=== PATIENT | female | born 1995 ===

== ENCOUNTER 2017-01-02 11:41 | Emergency (ER) | payer MEDICAID ==
[2017-01-02] MEDS ORDERED: Sodium Chloride 0.9% 1,000 ML IV ONE (12:17)
--- NOTE | 2017-01-02 12:21 | C.PDOC ---
History Of Present Illness 21 year old female presents to the ED with complaints of nausea, fatigue, and generalized abdominal cramping and pain for the past week. Patient notes she went to her supervisor [employer] for a check up 3 weeks ago and her glucose levels were found to be high, and iron levels were low. She also states she has increased loose bowel movements. LNMP began December 23. No other complaints at this time. Time Seen by Provider: 01/02/17 12:10 Chief Complaint (Nursing): GI Problem History Per: Patient History/Exam Limitations: no limitations Onset/Duration Of Symptoms: Days (7) Current Symptoms Are (Timing): Still Present Location Of Pain/Discomfort: Diffuse Quality Of Discomfort: Cramping, "Pain" Associated Symptoms: Nausea, Vomiting, Loss Of Appetite. denies: Fever, Chills , Diarrhea, Back Pain Abnormal Vaginal Bleeding: No Past Medical History Reviewed: Historical Data, Nursing Documentation, Vital Signs Vital Signs: Last Vital Signs Temp Pulse 70 01/02/17 13:24 Resp 17 01/02/17 13:24 BP 113/71 01/02/17 13:24 Pulse Ox 100 01/02/17 13:24 - Medical History PMH: No Chronic Diseases Surgical History: No Surg Hx Family History: States: Unknown Family Hx - Social History Hx Tobacco Use: Yes (2-3 cigarettes daily) Hx Alcohol Use: Yes Hx Substance Use: No - Immunization History Hx Tetanus Toxoid Vaccination: No Hx Influenza Vaccination: No Hx Pneumococcal Vaccination: No Review Of Systems Constitutional: Positive for: Other (Fatigue). Negative for: Fever, Chills, Sweats ENT: Negative for: Nose Discharge Respiratory: Negative for: Cough Gastrointestinal: Positive for: Nausea, Vomiting, Abdominal Pain, Diarrhea Genitourinary: Negative for: Dysuria, Vaginal Discharge, Vaginal Bleeding Musculoskeletal: Negative for: Back Pain Neurological: Negative for: Headache, Dizziness Physical Exam - Physical Exam Appears: Non-toxic, No Acute Distress Skin: Normal Color, Warm, Dry Head: Atraumatic, Normacephalic Eye(s): bilateral: Normal Inspection, EOMI Nose: Normal Oral Mucosa: Moist Lips: Normal Appearing Throat: Normal, No Erythema, No Exudate Neck: Normal ROM, Supple Chest: Symmetrical, No Deformity Cardiovascular: Rhythm Regular Respiratory: No Decreased Breath Sounds, No Accessory Muscle Use, No Rales, No Rhonchi, No Stridor, No Wheezing Gastrointestinal/Abdominal: Bowel Sounds, Soft, Tenderness (generalized abdominal tenderness), No Distention, No Guarding, No Rebound Back: Normal Inspection, No CVA Tenderness Extremity: Normal ROM, No Tenderness Neurological/Psych: Oriented x3, Normal Speech Gait: Steady ED Course And Treatment - Laboratory Results Result Diagrams: 01/02/17 12:24 01/02/17 12:24 Lab Interpretation: No Acute Changes Medical Decision Making Medical Decision Makin y.o female with vague complaints of nausea, abdominal pain, diarrhea, and fatigue. Exam was unremarkable. Labs ordered and reviewed showing no anemia, leukocytosis or other abnormality. Upon reevaluation patient resting comfortably afebrile and in no distress. Patient feels well and is asking for work excuse for 2 days. Patient stable for discharge. Disposition Counseled Patient/Family Regarding: Diagnosis, Need For Followup, Rx Given - Disposition Referrals: [facility] [Outside] [facility] [Outside] Disposition: HOME/ ROUTINE Disposition Time: 13:09 Condition: STABLE Additional Instructions: Your labs are normal Please follow up with primary doctor or clinic for further evaluation Prescriptions: Ondansetron ODT [Zofran ODT] 1 odt PO BID PRN #6 odt PRN Reason: Nausea/Vomiting Instructions: Acute Nausea and Vomiting (ED) Forms: Work Excuse - POA Present On Arrival: None - Clinical Impression Clinical Impression: Nausea - Scribe Statement The provider has reviewed the documentation as recorded by the Scribalbaro Chamorro All medical record entries made by the Joseibalbaro were at my direction and personally dictated by me. I have reviewed the chart and agree that the record accurately reflects my personal performance of the history, physical exam, medical decision making, and the department course for this patient. I have also personally directed, reviewed, and agree with the discharge instructions and disposition.
[2017-01-02] MEDS ORDERED: Sodium Chloride 0.9% 1,000 ML ONE (12:26)
[2017-01-02 12:29] LABS: BASO % 0.6 % (0.0-2.0); HEMATOCRIT 40.7 % (34.0-47.0); LYMPH # 1.9 K/uL (1.0-4.3); LYMPH % 38.2 % (20.0-40.0); MEAN CELL VOLUME 93.1 fL (81.0-99.0); MEAN CORPUSCULAR HEMOGLOBIN 30.3 pg (27.0-31.0); MEAN CORPUSCULAR HGB CONC 32.5 g/dL (33.0-37.0); MEAN PLATELET VOLUME 9.1 fL (7.2-11.7); MONO # 0.4 K/uL (0.0-0.8); MONO % 8.6 % (0.0-10.0); NRBC % 0.1 % (0.0-2.0); RED CELL DISTRIBUTION WIDTH 12.5 % (11.5-14.5); WHITE BLOOD COUNT 4.9 K/uL (4.8-10.8)
[2017-01-02 12:37] LABS: RBC URINE 4 /hpf (0-3); URINE BILIRUBIN NEGATIVE (NEGATIVE); URINE BLOOD NEGATIVE (NEGATIVE); URINE COLOR Yellow (YELLOW); URINE GLUCOSE (UA) NORMAL (Normal); URINE KETONE NEGATIVE (NEGATIVE); URINE LEUKOCYTE ESTERASE NEG Leu/uL (Negative); URINE PROTEIN NEGATIVE (NEGATIVE); URINE UROBILINOGEN NORMAL mg/dL (0.2-1.0); WBC URINE 1 /hpf (0-5)
[2017-01-02 12:42] LABS: CHLORIDE 101 mmol/L (98-107); SODIUM 138 mmol/L (132-148)
[2017-01-02 12:43] LABS: POTASSIUM 3.5 mmol/L (3.6-5.2)
[2017-01-02 12:46] LABS: ALB/GLOB RATIO 1.4 (1.0-2.1); ALKALINE PHOSPHATASE 59 U/L (38-126); ALT/SGPT 19 U/L (9-52); AST/SGOT 22 U/L (14-36); BILIRUBIN,TOTAL 0.7 mg/dL (0.2-1.3); BLOOD UREA NITROGEN 7 mg/dL (7-17); CALCIUM 8.7 mg/dl (8.6-10.4); CARBON DIOXIDE 24 mmol/L (22-30); GFR AFRICAN-AMERICAN > 60; GLUCOSE,RANDOM 92 mg/dL (65-105); TOTAL PROTEIN 7.3 g/dL (6.3-8.3)
[2017-01-02 13:26] VITALS: BP 113/71; PULSE 70; RESP 17; O2SAT 100
== END 2017-01-02 13:45 | disposition home or self-care (01) ==
LOC: C.ER 11:41
DX: R11.0 Nausea (principal)
CPT/HCPCS: 80053; 81001; 83690; 84703; 85025; 96361; 96374; 99285; J2405; J7040

== ENCOUNTER 2017-08-30 14:25 | Emergency (ER) | payer BC, MEDICAID ==
[2017-08-30 14:46] VITALS: TEMP 98
--- NOTE | 2017-08-30 16:09 | RAD ---
PROCEDURE: Right Ankle Radiographs. HISTORY: Fall, pain COMPARISON: None FINDINGS: BONES: Bone alignment and mineralization are normal. There is no acute displaced fracture or bone destruction. JOINTS: Normal. No osteoarthritis. Ankle mortise maintained. Talar dome intact SOFT TISSUES: There is mild periarticular soft tissue swelling. OTHER FINDINGS: None. IMPRESSION: No acute fracture or dislocation. Mild periarticular soft tissue swelling.
[2017-08-30 16:30] VITALS: BP 105/68; PULSE 78; RESP 18; O2SAT 98
--- NOTE | 2017-08-30 16:50 | C.PDOC ---
History Of Present Illness 22 year old female presents to the ED for evaluation of right ankle pain which began 2 days ago. Patient states she was walking her dog when her right ankle turned. Patient denies falls, head injury, LOC, extremity numbness/weakness and is able to ambulate. Chief Complaint (Nursing): Lower Extremity Problem/Injury History Per: Patient History/Exam Limitations: no limitations Onset/Duration Of Symptoms: Days (2) Current Symptoms Are (Timing): Still Present Additional History Per: Patient Past Medical History Reviewed: Historical Data, Nursing Documentation, Vital Signs Vital Signs: Last Vital Signs Temp 98.0 F 08/30/17 14:44 Pulse 78 08/30/17 16:29 Resp 18 08/30/17 16:29 BP 105/68 08/30/17 16:29 Pulse Ox 98 08/31/17 09:55 - Medical History PMH: No Chronic Diseases Surgical History: No Surg Hx Family History: States: Unknown Family Hx - Social History Hx Tobacco Use: Yes (2-3 cigarettes daily) Hx Alcohol Use: Yes Hx Substance Use: Yes - Immunization History Hx Tetanus Toxoid Vaccination: No Hx Influenza Vaccination: No Hx Pneumococcal Vaccination: No Physical Exam - Physical Exam Appears: Non-toxic, No Acute Distress Skin: Normal Color, Warm, Dry, No Ecchymosis Extremity: Normal ROM, Capillary Refill (less than 2 seconds ), Swelling (mild, to lateral aspect of right ankle ) Neurological/Psych: Oriented x3, Normal Speech, Normal Cognition Gait: Steady ED Course And Treatment O2 Sat by Pulse Oximetry: 98 (on RA) Pulse Ox Interpretation: Normal Medical Decision Making Medical Decision Making: Right ankle XR ordered and reviewed. Tylenol PO administered. Disposition - [facility] - Disposition: HOME/ ROUTINE Disposition Time: 16:00 Condition: GOOD Additional Instructions: Thank you for letting us take care of you today. The emergency medical care you received today was directed at your acute symptoms. If you were prescribed any medication, please fill it and take as directed. It may take several days for your symptoms to resolve. Return to the Emergency Department if your symptoms worsen, do not improve, or if you have any other problems. Please contact your doctor or call one of the physicians/clinics you have been referred to that are listed on the Patient Visit Information form that is included in your discharge packet. Bring any paperwork you were given at discharge with you along with any medications you are taking to your follow up visit. Our treatment cannot replace ongoing medical care by a primary care provider (PCP) outside of the emergency department. Thank you for allowing the [facility] team to be part of your care today. Follow up with your doctor in 3-4 days for re-evaluation and further management. Prescriptions: Ibuprofen [Motrin] 600 mg PO Q6 PRN #20 tab PRN Reason: Pain, Moderate (4-7) Instructions: Ankle Sprain (ED), Crutch Instructions (ED), RICE Therapy (ED) Forms: Work Excuse - Clinical Impression Clinical Impression: Ankle sprain - Scribe Statement The provider has reviewed the documentation as recorded by the Scribe (Edie Chaparro) Provider Attestation: All medical record entries made by the Scribe were at my direction and personally dictated by me. I have reviewed the chart and agree that the record accurately reflects my personal performance of the history, physical exam, medical decision making, and the department course for this patient. I have also personally directed, reviewed, and agree with the discharge instructions and disposition.
== END 2017-08-30 16:54 | disposition home or self-care (01) ==
LOC: C.ER 14:25
DX: S93.401A Sprain of unspecified ligament of right ankle, initial encounter (principal); X50.0XXA Overexertion from strenuous movement or load, initial encounter; Y93.K1 Activity, walking an animal; Y92.89 Other specified places as the place of occurrence of the external cause

== ENCOUNTER 2017-09-03 10:32 | Emergency (ER) | payer BC, MEDICAID ==
[2017-09-03 10:36] VITALS: BP 109/69; PULSE 86; RESP 20; TEMP 98; O2SAT 99
--- NOTE | 2017-09-03 11:27 | C.PDOC ---
History Of Present Illness 22 y/o female comes in for right ankle evaluation. She reports pain and swelling over the right lateral malleolus, developing since yesterday. States she twisted the right ankle yesterday after slipping on ice. Patient had a similar injury a few days ago, when was seen in ED and ankle splint was applied ( pt does not have now) with no fracture seen on imaging. Pain is localized over the ankle and worsens with ambulation. Otherwise, pt denies weakness, deformity, vascular/sensory deficits to Left ankle. Ambulate to Ed for evaluation, not in nay apparent distress.. Time Seen by Provider: 09/03/17 11:09 Chief Complaint (Nursing): Lower Extremity Problem/Injury History Per: Patient History/Exam Limitations: no limitations Onset/Duration Of Symptoms: Days (x 2) Current Symptoms Are (Timing): Still Present - Ankle/Foot Description Of Injury: Fell, Twisted Past Medical History Reviewed: Historical Data, Nursing Documentation, Vital Signs Vital Signs: Last Vital Signs Temp 98 F 09/03/17 10:33 Pulse 86 09/03/17 10:33 Resp 20 09/03/17 10:33 BP 109/69 09/03/17 10:33 Pulse Ox 99 09/03/17 11:53 - Medical History PMH: No Chronic Diseases Surgical History: No Surg Hx Family History: States: Unknown Family Hx - Social History Hx Tobacco Use: Yes (2-3 cigarettes daily) Hx Alcohol Use: Yes Hx Substance Use: Yes - Immunization History Hx Tetanus Toxoid Vaccination: No Hx Influenza Vaccination: No Hx Pneumococcal Vaccination: No Review Of Systems Except As Marked, All Systems Reviewed And Found Negative. Musculoskeletal: Positive for: Foot Pain (Right ankle). Negative for: Other ( obvious deformity) Neurological: Negative for: Weakness, Numbness Physical Exam - Physical Exam Appears: Well, Non-toxic, No Acute Distress Skin: Normal Color, Warm, No Rash Extremity: Normal ROM (Right ankle), Tenderness, No Calf Tenderness, Capillary Refill (less than 2sec to Right foot), No Deformity (Right LE), Swelling ( lateral malleolus of Right ankle, minimal) Neurological/Psych: Oriented x3, Normal Speech, Normal Motor, Normal Sensation, Normal Reflexes ED Course And Treatment O2 Sat by Pulse Oximetry: 99 (RA) Pulse Ox Interpretation: Normal - Other Rad Right ankle X-Ray: Interpreted by Me, Viewed By Me Interpretation: (-) acute fx or dislocation Right tib/fib X-Ray: Interpreted by Me, Viewed By Me Interpretation: (-) acute fx or dislocation Progress Note: Patient given Ibuprofen 600mg. Ordered x-rays of right ankle and tib/fib to rule out fracture. On re-eval, pt is afebrile, hemodynamicaly stable. Ambulatory in ED with stable gait. head: AT/NC. Left ankle; exam c/w ankle sprain, No defomrity, FAROM, no neurovsacular deficits. Imaging review (- ) acute fx. Luis Daniel wrap applie dto left ankle. Pt advised to wear splint ( air cast) she received few days ago from ED. Pt advised. ref. to F/u with PMD, Ortho in 2-3 days for re-eavl. return if any new changes. Disposition Counseled Patient/Family Regarding: Diagnosis, Need For Followup, Rx Given - Disposition Referrals: Andres Denis MD [Staff Provider] - Disposition: HOME/ ROUTINE Disposition Time: 11:27 Condition: STABLE Additional Instructions: LIGHT DUTY TO RIGHT ANKLE SPLINT FOR WEEK IBUPROFEN TWICE DAILY AFTER FOOD FOLLOW UP WITH ORTHO IN 2-3 [place] FOR RE-EVALUATION. RETURN TO ED IF ANY WORSENING OR NEW CHANGES. Instructions: Ankle Sprain (ED), Ankle Stirrup Splint (ED) Forms: [facility] (Lao), Work Excuse - Clinical Impression Clinical Impression: Ankle sprain - PA / PEDIATRICIAN ACTIVE PRACTICE / Resident Statement MD/DO has reviewed & agrees with the documentation as recorded. - Scribe Statement The provider has reviewed the documentation as recorded by the Scribe (Caitlyn Pratt) All medical record entries made by the Scribe were at my direction and personally dictated by me. I have reviewed the chart and agree that the record accurately reflects my personal performance of the history, physical exam, medical decision making, and the department course for this patient. I have also personally directed, reviewed, and agree with the discharge instructions and disposition.
--- NOTE | 2017-09-03 11:28 | RAD ---
PROCEDURE: Right Ankle Radiographs. HISTORY: injury COMPARISON: Comparison made with concurrent radiographs of the right tibia and fibula and prior ankle radiographs dated 08/30/2017. FINDINGS: BONES: No evidence of acute displaced fracture nor dislocation. The osseous structures and talar dome intact. JOINTS: Ankle mortise maintained. No significant osteoarthritis. SOFT TISSUES: There appears to be some minimal bilateral soft tissue swelling lateral greater than medial OTHER FINDINGS: None. IMPRESSION: No evidence of acute displaced fracture nor dislocation. If symptoms persist or occult fracture suspected clinically consider repeat radiographs in 5-10 days as most fractures should become radiographically evident in this timeframe. The. There appears to be some minimal bilateral soft tissue swelling lateral greater than medial
--- NOTE | 2017-09-03 11:31 | RAD ---
PROCEDURE: Right tibia/ fibula dated 09/03/2017. AP and lateral views of the right tibia and fibula performed. Note that clothing artifact partially obscures fine soft tissue detail at the level of the knee and proximal calf. HISTORY: Injury. COMPARISON: Comparison made with concurrent radiographs of the right ankle TECHNIQUE: Frontal and lateral views obtained. FINDINGS: BONES: No fracture or destructive lesion. JOINT SPACES: Unremarkable. OTHER FINDINGS: None. IMPRESSION: No evidence of acute displaced fracture nor dislocation.
== END 2017-09-03 11:47 | disposition home or self-care (01) ==
LOC: C.ER 10:32
DX: S93.401A Sprain of unspecified ligament of right ankle, initial encounter (principal); W00.0XXA Fall on same level due to ice and snow, initial encounter

== ENCOUNTER 2018-08-28 21:42 | Inpatient (IN) | payer BC, MEDICAID ==
[2018-08-28 22:02] VITALS: BMI 29.8
--- NOTE | 2018-08-28 22:02 | OBHP ---
Datetime: 08/28/2018 21:58 IP Adm Impression: Term, intrauterine ; Active labor IP Admit Plan: Admit to unit; Initiate labor protocol Admit Comment, IP Provider: at [id number] came with c.o ctxs started at 6.30 pm, 04/29,no vb , lof +fm obhx primi pmh de med pnv all nkda psh de soch de vre /-2 a/p at 39+we in active laborr admit to l_d npo/ivf labs gann ma con5t suki and efm anticipate ndsvd Pelvic Type - PN: Adequate Extremities - PN: Normal Abdomen - PN: Normal Back - PN: Normal Breast - PN: Normal Lungs - PN: Normal Heart - PN: Normal Thyroid - PN: Normal Neurologic - PN: Normal HEENT - PN: Normal General - PN: Normal FHR - Baseline A Provider: 120 Contraction Comments Provider: q1-4 IP Hx Assessment: The History has been Reviewed and is Current EGA AdmitDate IP: 39.3 Vital Signs Provider: Reviewed IP Chief Complaint: Uterine contractions NICHD Variability Prov Fetus A: Moderate 6-25bpm NICHD Accel Fetus A IP Provider: [id number] FHR Category Provider Fetus A: Category I Dilatation, Provider: 4 Effacement, Provider: 80 Station, Provider: -2 Genitourinary Exam: Normal DTRs - PN: Normal
[2018-08-28] MEDS ORDERED: Lactated Ringer's 1,000 ML IV SCH (22:15)
[2018-08-28 22:31] LABS: BASO % 0.3 % (0.0-2.0); EOS # 0.1 K/uL (0.0-0.7); EOS % 0.6 % (0.0-4.0); HEMOGLOBIN 11.6 g/dL (11.0-16.0); LYMPH # 1.7 K/uL (1.0-4.3); LYMPH % 14.7 % (20.0-40.0); MEAN CELL VOLUME 88.8 fL (81.0-99.0); MEAN CORPUSCULAR HEMOGLOBIN 30.7 pg (27.0-31.0); MEAN CORPUSCULAR HGB CONC 34.5 g/dL (33.0-37.0); MEAN PLATELET VOLUME 10.2 fL (7.2-11.7); MONO # 1.2 K/uL (0.0-0.8); MONO % 10.5 % (0.0-10.0); NEUT # 8.7 K/uL (1.8-7.0); NEUT % 73.9 % (50.0-75.0); RBC 3.78 Mil/uL (3.80-5.20); RED CELL DISTRIBUTION WIDTH 12.9 % (11.5-14.5); WHITE BLOOD COUNT 11.7 K/uL (4.8-10.8)
[2018-08-28 22:47] LABS: ALB/GLOB RATIO 1.1 (1.0-2.1); ALBUMIN 3.7 g/dL (3.5-5.0); ALT/SGPT 22 U/L (9-52); AST/SGOT 22 U/L (14-36); BLOOD UREA NITROGEN 8 mg/dL (7-17); GFR NON-AFRICAN AMERICAN > 60
[2018-08-28 22:50] LABS: SQUAMOUS EPITHIAL 1 /hpf (0-5); URINE BACTERIA RARE (<OCC); URINE BILIRUBIN NEGATIVE (NEGATIVE); URINE BLOOD 3+ (NEGATIVE); URINE CLARITY Clear (Clear); URINE COLOR Yellow (YELLOW); URINE GLUCOSE (UA) NORMAL (Normal); URINE LEUKOCYTE ESTERASE TRACE Leu/uL (Negative); URINE PROTEIN NEGATIVE (NEGATIVE); URINE UROBILINOGEN NORMAL mg/dL (0.2-1.0)
[2018-08-28] MEDS ORDERED: Bupivacaine HCl/FentaNYL Cit 100 ML EPI ONE (22:52)
[2018-08-28 23:01] LABS: BARBITURATES, UR NEGATIVE (NEGATIVE); BENZODIAZEPINES, UR NEGATIVE (NEGATIVE); OPIATES, UR NEGATIVE (NEGATIVE); PHENCYCLIDINE, UR NEGATIVE (NEGATIVE)
[2018-08-29] MEDS ORDERED: Oxycodone/Acetaminophen 5/325 mg Tab PO PRN ×2 (01:54)
[2018-08-29] MEDS ORDERED: Benzocaine/Menthol 20%-0.5% Topical Spray (60 ml) TOP PRN (01:54)
--- NOTE | 2018-08-29 01:54 | OBDS ---
DELIVERY PERSONNEL Nurse Interface Engineer Certified: n/a Delivery Doctor: Nikita Burns MD Scrub Nurse: N/A Preload Supervisor: Federica Barnett RN Anesthesiologist: DR NGUYỄN Ui Ux Engineer: same Resident: N/A MATERNAL INFORMATION Estimated Blood Loss (ml): 300 Provider Comments: baby naseemverd in dario. end clean apgat 9no com LABOR SUMMARY EDC: 09/01/2018 00:00 No. Babies in Womb: 1 Attempted: No Labor Anesthesia: Epidural LABOR INFORMATION Reason for Induction Other: PT CAME IN ACTIVE LABOR Onset of Labor: 08/28/2018 19:00 Other Ripening Agents: NONE Oxytocin: NONE Group B Beta Strep: Negative Antibiotics # of Doses: 0 Antibiotics Time of Last Dose: N/A MEMBRANES Membranes Rupture Method: Spontaneous Rupture of Membranes: 08/29/2018 00:25 Length of Rupture (hrs): 1.30 Amniotic Fluid Color: Clear Amniotic Fluid Amount: Moderate Amniotic Fluid Odor: Normal STAGES OF LABOR Stage 3 hrs: 0 Stage 3 min: 3 Total Time in Labor hrs: 6 Total Time in Labor min: 46 VAGINAL DELIVERY Episiotomy: Right Mediolateral Laceration Extension: N/A Laceration Repair Note: repaired wt 2 hromic Final Vag Sponge Count: 10 X-RAYS Sponge Count Correct: N/A Sharps Count Correct: N/A BABY A INFORMATION Delivery Date/Time: 08/29/2018 01:43 Method of Delivery: Vaginal Born in Route : No : N/A Forceps: N/A Vacuum Extraction: N/A Shoulder Dystocia : No SHOULDER DYSTOCIA BABY A Infant Delivery Date/Time: 08/29/2018 01:43 PRESENTATION/POSITION BABY A Presentation: Cephalic Cephalic Presentation: Vertex Vertex Position: Left Occipital Anterior Breech Presentation: N/A PLACENTA INFORMATION BABY A Placenta Delivery Time : 08/29/2018 01:46 Placenta Method of Delivery: Spontaneous Placenta Status: Delivered SCORES BABY A Heart Rate 1 min: >100 bpm Resp Effort 1 min: Good Cry Reflex Irritability 1 min: Cough or Sneeze or Pulls Away Muscle Tone 1 min: Active Motion Color 1 min: Body [place], Extremities Blue Resuscitation Effort 1 min: N/A SCORE 1 MIN: 9 INFANT INFORMATION BABY A Gestational Age at Delivery: 39.4 Gestational Status: Term Outcome : Liveborn Infant Condition : Stable Sex: Male IDENTIFICATION/MEDS BABY A ID Band Number: [id number] Sensor Number: [id number] WEIGHT/LENGTH BABY A Infant Birthweight (gms): 3465 Infant Weight (lb): 7 Infant Weight (oz): 10 Length Inches: 19.00 Length cms: 48.3 CORD INFORMATION BABY A No. Cord Vessels: #3 Nuchal Cord : N/A Cord Blood Taken: Yes ASSESSMENT BABY A Complications: None Physical Findings at Delivery: Within Normal Limits Infant Respirations: Appears Normal Infant Care By: Haley ESTRELLA RN Transferred To: Nursery
--- NOTE | 2018-08-29 09:04 | OBPPN ---
Datetime: 08/29/2018 09:01 PP Pain Prov: Within normal limits PP Nausea Prov: Denies PP Heart Prov: Normal PP Lungs Prov: Normal PP Abdomen/Uterus Prov: Normal PP Lochia Prov: Normal PP Vulva/Perineum Prov: Normal PP Impression Prov: Normal progression PP Plan Prov: Continue present management PP Progress Note Prov: patient seen and examined s/p PP #1 stable, afebrile labs pending continue routine post care Vital Signs Provider PP: Reviewed; Within Normal Limits
[2018-08-29] MEDS: Multiple Vitamins Tab PO SCH (09:47)
[2018-08-30 08:14] LABS: BASO % 0.3 % (0.0-2.0); EOS # 0.1 K/uL (0.0-0.7); EOS % 0.6 % (0.0-4.0); HEMOGLOBIN 11.7 g/dL (11.0-16.0); LYMPH % 13.8 % (20.0-40.0); MEAN CORPUSCULAR HEMOGLOBIN 30.8 pg (27.0-31.0); MEAN CORPUSCULAR HGB CONC 34.2 g/dL (33.0-37.0); MEAN PLATELET VOLUME 10.3 fL (7.2-11.7); MONO % 6.8 % (0.0-10.0); NEUT # 11.2 K/uL (1.8-7.0); NEUT % 78.5 % (50.0-75.0); RBC 3.82 Mil/uL (3.80-5.20); RED CELL DISTRIBUTION WIDTH 13.2 % (11.5-14.5); WHITE BLOOD COUNT 14.3 K/uL (4.8-10.8)
[2018-08-30 09:03] VITALS: BP 130/78; PULSE 78; RESP 20; TEMP 97.2; O2SAT 99
[2018-08-30] MEDS: Multiple Vitamins Tab PO SCH (10:38)
--- NOTE | 2018-08-30 23:08 | OBPPN ---
Datetime: 08/30/2018 06:59 PP Nausea Prov: Denies PP Flatus Prov: Yes PP BM Prov: Yes PP Breasts Prov: Normal PP Heart Prov: Normal PP Lungs Prov: Normal PP Abdomen/Uterus Prov: Normal PP Lochia Prov: Normal PP Vulva/Perineum Prov: Normal PP CVA Tenderness Prov: Normal PP Extremities Prov: Normal PP C/S Incision Prov: Not Applicable PP Progress Prov: Abnormal PP Comments Phys Exam Prov: Abdomen: Soft, non-tender, fundal height 3 finger breadths below umbilic us PP Impression Prov: Normal progression PP Plan Prov: Discharge PP Progress Note Prov: 23 year old female PPD #1 status post . Patient states she is feel ing better and pain has improved, for which she has been taking Motrin. She reports having a bowel mo vement and flatus. She is tolerating a regular diet and reports adequate oral hydration as well. Stat es lochia has diminished since yesterday. She is attempting to breast feed every 2 hours, however sta quinten baby is not latching well. She is supplementing with bottle feeding. Denies fever, chills, nausea , vomiting, diarrhea, chest pain, palpitations and shortness of breath. Assessment and Plan: 23 year old female PPD #1 status post SNVD H/H today 11.7/34.3 Patient stable and satisfactory for discharge Script for Motrin 600mg every 6 hours as needed for pain and Colace 100mg twice daily for constipa tion Continue vitamins for 3-4 months Pelvic rest/nothing in the vagina for 6 weeks. Drink plenty of water. Follow up with your Ob-sumatra opener in 6 weeks. Patient must call [facility] Farrell [phone] today after discharge to schedule a follow up appoin tme for tomorrow. Case discussed with Dr. Diop. Irina See, PGY-1. Attending Note: patient seen and evaluated by me with the resident. I agree with the above. Asha nt referred to Social Work for (+) THC on urine drug screen on admission. Patient has been evaluated by DYFS; who has approved the discharge of the in the care of patient. Patient to contact [facility] customer contact sales associate in the morning. Patient unsure re: contraception; options discussed. Patient is cl inically stable; and cleared for discharge home. All else as above. IP PP Procedures: None Vital Signs Provider PP: Reviewed; Within Normal Limits
--- NOTE | 2018-08-30 23:10 | OBDCSUM ---
Datetime: 08/30/2018 10:05 Disch Instr Activity: Normal activity; May be up to bathroom; May be up for meals; May Shower Discharge Instructions, Provider: Routine instructions given Discharge Diagnosis, Provider: Term Delivered Contraception discussed, Prov: Yes Disch Activity Restrictions: No exercising; No lifting; No driving; No sexual activity; Nothing in v agina - [place], tampons, douche Discharge Comment, Provider: 23 year old female PPD #1 status post . Patient states she i s feeling better and pain has improved, for which she has been taking Motrin. She reports having a rigoberto wel movement and flatus. She is tolerating a regular diet and reports adequate oral hydration as well . States lochia has diminished since yesterday. She is attempting to breast feed every 2 hours, [facility] er states baby is not latching well. She is supplementing with bottle feeding. Denies fever, chills, nausea, vomiting, diarrhea, chest pain, palpitations and shortness of breath. Assessment and Plan: 23 year old female PPD #1 status post SNVD H/H today 11.7/34.3 Patient stable and satisfactory for discharge Script for Motrin 600mg every 6 hours as needed for pain and Colace 100mg twice daily for constipa tion Continue vitamins for 3-4 months. Pelvic rest/nothing in the vagina for 6 weeks. Drink plenty of water. Follow up with Ob-tractor driver in 6 weeks. Patient must call [facility] Farrell [phone] today after discharge to schedule a follow up [facility] for tomorrow. Case discussed with Dr. Diop. Irina See, PGY-1. Discharge Diagnosis Prov Other: H/O cannibinoid use in Conraception counseling Contraception after Delivery: Undecided
== END 2018-08-30 14:01 | disposition home or self-care (01) | DRG 807 ==
LOC: C.EROB 21:42 → C.4D 22:00 → C.4M 08-29 03:15
PROVIDERS: ADMIT Obstetrics & Gynecology; ATTEND Obstetrics & Gynecology
PROC: 0W8NXZZ Division of Female Perineum, External Approach (ICD-10-PCS; principal; 2018-08-29)
PROC: 10E0XZZ Delivery of Products of Conception, External Approach (ICD-10-PCS; 2018-08-29)
DX: O99.324 Drug use complicating childbirth (principal); F12.10 Cannabis abuse, uncomplicated; Z3A.39 39 weeks gestation of pregnancy; Z37.0 Single live birth